=== PATIENT | female | born 1940 | race Caucasian/White ===

== ENCOUNTER → 2016-11-29 | Outpatient (REF) | payer MEDICARE, MEDICAID ==
[2016-11-29 14:49] LABS: CALCIUM LEVEL 9.2 MG/DL (8.8-10.2); PHOSPHORUS LEVEL 3.6 MG/DL (2.5-4.9)
== END ==
LOC: M LABDRAW1 13:36
PROVIDERS: ATTEND Internal Medicine Endocrinology, Diabetes & Metabolism
DX: E58 Dietary calcium deficiency (principal)

== ENCOUNTER → 2018-12-08 | Outpatient (CLI) | payer MEDICARE, MEDICAID ==
[~2018-12-08] MED LIST: PROHANCE 279.3MG/ML 15ML VIAL (A9576) As Ordered ONE
--- NOTE | 2018-12-08 15:19 | REP ---
MRI LUMBAR SPINE WITHOUT AND WITH IV GADOLINIUM: HISTORY: Intervertebral disc disease. Comparison MRI study is from April 18, 2016. The gadolinium enhancement dose is 13 mL of intravenous ProHance. TECHNIQUE: Sagittal and axial T1 and T2-weighted scans are acquired in the usual fashion with and without fat saturation. Sequences include spin echo, turbo spin-echo, and STIR imaging sequences. MRI FINDINGS: Lumbar vertebral body heights are preserved. Alignment is unchanged. There is a 3.6 mm degenerative L3-4 spondylolisthesis again seen. This appears to be unchanged. Cortical and medullary bone signal intensity are normal. No extra vertebral abnormality is observed. Conus medullaris is normal in position and appearance at L1. There is a hemangioma in the T12 vertebral body, unchanged. No significant finding is seen on axial and sagittal images at L1-L2. At L2-3, there is minimal diffuse disc bulging. The disc is somewhat narrowed. Mild ligamentum flavum hypertrophy is noted. These findings are unchanged. L2-L3, there is minimal diffuse disc bulging. No central canal stenosis or neural foraminal narrowing is appreciated. At L3-4, there is diffuse disc bulging. This indents the ventral margin of the thecal sac. Canal size is borderline. There is ligamentum flavum and facet hypertrophy present bilaterally. The findings are felt to be unchanged from the April 2016 prior study. At L4-5, there is moderate to advanced osteoarthritic facet hypertrophy bilaterally. A small quantity of facet joint fluid is present. The facet hypertrophy and ligamentum flavum hypertrophy are somewhat more pronounced at L4-5 when compared with the April 18, 2016 study. No neural foraminal narrowing is seen. At L5-S1, there is mild facet hypertrophy bilaterally, unchanged. Post gadolinium enhanced images show no suspicious or significant gadolinium enhancement at any level. IMPRESSION: Degenerative spondylosis changes. There is a stable 3 mm L3-4 degenerative spondylolisthesis. Diffuse disc bulging is seen at L3-4. There are moderate to advanced osteoarthritic facet changes bilaterally at L4-5 which are more pronounced than on the 2015 prior study. Electronically Signed by Renan Christian MD 12/08/2018 05:11 P
--- NOTE | 2018-12-08 17:18 | REP ---
MRI LEFT HIP WITH AND WITHOUT CONTRAST: TECHNIQUE: Coronal T1, STIR through the pelvis, T2 fat sat, left hip all three planes, axial oblique proton density fat sat left hip. Axial T1 fat sat, post IV Gadolinium axial and coronal T1 fat sat, following intravenous administration of 13 mL ProHance. COMPARISON: 04/18/2016 MRI right hip at I. The visualized osseous structures demonstrate normal bone marrow signal. There is no bone marrow edema or occult fracture. No bone lesion is seen. There is no evidence of avascular necrosis. At both hip joints there is moderate diffuse chondromalacia. No subchondral signal changes are seen. There are small bilateral joint effusions. There is increased signal and ill defined enhancement in the soft-tissues along the greater trochanter of the proximal left femur compatible with a moderate degree of greater trochanteric tendino bursitis. There is diffuse fraying of the superior and anterior left hip labrum. No paralabral cyst is seen. No other abnormalities are seen. There is no enhancing mass. In the visualized portions of the pelvis there is a cystic structure of the right ovary which is unchanged since the 2016 exam measuring 2.6 cm in diameter. Incidental note is made of sigmoid diverticulosis. IMPRESSION: No occult fracture or bone lesion. There is diffuse fraying of the superior and anterior left hip labrum. There is moderate greater trochanteric tendino bursitis on the left. Both hip joints demonstrate moderate diffuse chondromalacia and small joint effusions. A cystic structure of the right ovary is stable since the 2016 exam. There is sigmoid diverticulosis. Electronically Signed by Walt Jj MD 12/10/2018 02:36 P
== END ==
LOC: M RAD 11:59
PROVIDERS: ATTEND Physical Medicine & Rehabilitation
DX: M51.37 Other intervertebral disc degeneration, lumbosacral region (principal); M51.26 Other intervertebral disc displacement, lumbar region; M47.896 Other spondylosis, lumbar region; M70.62 Trochanteric bursitis, left hip; M25.451 Effusion, right hip; M25.452 Effusion, left hip; M94.251 Chondromalacia, right hip; M94.252 Chondromalacia, left hip
CPT/HCPCS: 72158; 73723; A9576

== ENCOUNTER 2018-12-27 16:36 | Inpatient (IN) | payer MEDICARE, MEDICAID ==
[~2018-12-27] VITALS: Ht 144.8 cm; Wt 72.6 kg
[2018-12-27 18:30] VITALS: BP 120/72
[2018-12-27] MEDS ORDERED: ENOXAPARIN 40 MG/0.4 ML SYRINGE (J1650) SC SCH (19:30)
--- NOTE | 2018-12-27 19:48 | HPEPDOC ---
[facility] Medical History & Physical Date of Admission December 27, 2018 Date of Service: December 27, 2018 History and Physical DATE OF ADMISSION 12/27/2018 PCP Valdemar CHIEF COMPLAINT: Left ankle pain HISTORY OF PRESENT ILLNESS: Patient is a 78-year-old female who presents with left ankle pain, she reports being in the usual state of her normal health until earlier this day when she was at the cemetery cleaning her 's grave stone she has chronic back pain which makes it difficult for her to kneel down. Attempting to switch to have stone she spread her legs tending to do the splits in order to get lower from there she lost balance and fell onto her left ankle. The patient tells me that since then she has had exquisite pain. She denies any concerning prodromal symptoms. She denies lightheadedness dizziness palpitations chest pressure shortness of breath nausea vomiting or diarrhea. She tells me that she is more calm blood this time since being seen in [place] and that she lives alone and is unable to return home secondary to her inability to care for herself in her current state. Otherwise patient denies weight loss, hair loss, headache, visual changes, cough, abdominal pain, muscle aches, worsening arthritis, change in mood at the present time she tells me her pain is well- controlled PAST MEDICAL HISTORY: 1. Hypertension. 2. Hypothyroidism. 3. dyslipidemia 4. Osteoporosis. 5. Hiatal hernia HOME MEDICATIONS: Please see below. ALLERGIES: Please see below PAST SURGICAL HISTORY: 1. Right shoulder arthroscopically. 2. Tonsillectomy. 3. Hysterectomy 4. Colon resection with ostomy and then reversal 5. Right temporal artery biopsy 6. I will tunnel release 7. Cataract extraction. SOCIAL HISTORY: Lives with: Alone, Employment: Not working, Tobacco use: Never user. ETOH: None last drink 3 years ago, Illicit drug use: Denies, Tattoos done unprofessionally: Denies. IV drug use: Denies CODE STATUS: Full code FAMILY HISTORY:Reviewed and noncontributory REVIEW OF SYSTEMS: 10 systems reviewed and negative other than HPI PHYSICAL EXAMINATION: VITAL SIGNS: Temperature 97, pulse 91, respiratory rate 16, blood pressure 140/77, pulse oximetry 94 % on room air. GENERAL: Pleasant elderly female sitting up in bed awake alert oriented speaking in complete sentences no acute distress HEENT: Moist mucous membranes no elevation and CVP CARDIOVASCULAR: S1 S2 regular no additional heart sounds appreciated. RESPIRATORY: Clear to auscultation bilaterally. ABDOMINAL: Bowel sounds present abdomen soft and nontender, obese EXTREMITIES: No clubbing cyanosis or edema she has decreased range of motion in the left lower extremity secondary to splinting with Matheus wrap. The dressing is not removed at this time her pain is well-controlled. The patient declines offers of her foot more thoroughly examined with removal of the dressing NEUROLOGICAL: Spontaneously moves all 4 extremities cranial 2 through 12 grossly intact no gross focal deficits appreciated PSYCHOLOGICAL: Appropriate LABORATORY DATA: See below. MICROBIOLOGY: Please see below. IMAGING: Reports from [facility] reviewed: Spiral fracture of the distal metaphyseal versus of the fibula with tibiotalar joint disruption ASSESSMENT & PLAN: This is a 78-year-old female with Left distal fibular fracture and tibiotalar joint disruption. PROBLEMS: 1. Left distal fibular fracture and tibial talar joint disruption: I place a consult orthopedic surgery Dr. San is aware the patient. I have ordered her for repeat imaging of her left ankle to be reviewed by him. I've ordered for DVT prophylaxis she did not Zoloft to pain control secondary to an oxycodone allergy she denies any narcotics offered. She tells me that her pain is well-controlled with simple Tylenol and as such for the time being I'll continue her with this on an as-needed basis. I'll keep her on bed rest until weightbearing status to be determined by orthopedic surgery. Following that she would certainly benefit from PT OT and no surgical procedure is warranted she would likely need subacute rehabilitation. At this time she is not medically risk stratified prior operative procedure she has fairly good exercise tolerance however she tells me she'll be fairly short of breath on climbing 2 flights of stairs. She follows with Dr. Aldrich incarcerated tells me she has had a stress test done in the past she does not remember what was done for the results. I will recheck to their office in order to obtain the records first thing tomorrow morning. The patient has no prodromal symptoms concerning for any syncopal-like behavior. PFS consult placed. I'll make her nothing by mouth after midnight in case she is an operative candidate tomorrow if it is necessary 2. Hypertension: She tells me she is normally well controlled for the time being I'll provide her with her metoprolol will hold her valsartan hydrochlorothiazide pending orthopedic surgery eval and possible surgical intervention. Should she become hypertensive would restart her valsartan 160 mg after her hydro chlorothiazide 12 mg 3. Dyslipidemia: Continue with simvastatin 4. Seasonal allergies: Continue with cetirizine 5. Hypothyroidism: Continue with Synthroid 6. Osteoporosis: Continue with probably a injections every [address] Seymour's office, resume calcium and vitamin D were unable 7. Constipation: Chronic continue with senna 8. Shortness of breath: The patient uses an inhaler but very infrequently is unclear if this is associated with any underlying cardiac disease she certainly does not have a significant history for which I'm aware of at this time we'll review her records prior to risk stratification. We'll hold her home baby aspirin DVT PROPHYLAXIS: Lovenox DISPOSITION: Admitted to medical surgical floor with orthopedic surgery consult Allergies Coded Allergies: pregabalin (Verified Allergy, Intermediate, HEADACHE, 12/27/18) shellfish derived (Verified Allergy, Unknown, n/v, 12/27/18) SMOKE (Verified Adverse Reaction, Unknown, H/A, 01/13/08) A-FIB/CHADSVASC A-FIB History Current/History of A-Fib/PAF?: No NUNU DOHERTY MD December 27, 2018 19:48
[2018-12-27] MEDS ORDERED: PROAAER10 INH (20:05)
[2018-12-27] MEDS ORDERED: CALC500T44 PO (20:05)
[2018-12-27] MEDS ORDERED: SYNT75TA PO (20:05)
[2018-12-27] MEDS ORDERED: MAPA325T2 PO (20:05)
[2018-12-27] MEDS ORDERED: SIMV40TA2 PO (20:06)
[2018-12-27] MEDS ORDERED: VALS160T PO (20:06)
[2018-12-27] MEDS ORDERED: METO1TAB7 PO (20:06)
[2018-12-27] MEDS ORDERED: AMOX500C PO (20:06)
[2018-12-27] MEDS ORDERED: SENN1TAB8 PO (20:06)
[2018-12-27] MEDS ORDERED: GABA-1171 PO (20:06)
[2018-12-27] MEDS ORDERED: ALL10TAB28 PO (20:06)
[2018-12-27] MEDS ORDERED: VITA100014 PO (20:06)
--- NOTE | 2018-12-27 20:35 | REP ---
Clinical: Left fibular fracture. Technique: AP, lateral, bilateral oblique views of the left ankle. Findings: Evaluation is significantly limited due to overlying cast material. A subtle oblique nondisplaced fracture of the distal fibular metaphysis is suggested with diffuse swelling. Further acute injury cannot be excluded. Impression: Nondisplaced fracture of the distal fibular metaphysis. Electronically Signed by Ronni Howell MD 12/27/2018 08:26 P
--- NOTE | 2018-12-27 20:36 | REP ---
Clinical: Distal fibular fracture. Technique: AP and lateral views of the left tibia / fibula. Findings: Subtle nondisplaced fracture of the distal fibular metaphysis is suggested. Evaluation is significantly limited due to overlying cast material. Further subtle injuries cannot be excluded. Impression: Subtle nondisplaced fracture of the distal fibular metaphysis. Electronically Signed by Ronni Howell MD 12/27/2018 08:28 P
--- NOTE | 2018-12-27 20:37 | REP ---
Clinical: Preoperative assessment . Comparison: None . Findings: The mediastinum and cardiac silhouette are stable and within normal limits for portable technique. The lung nelson demonstrate chronic-appearing changes without acute consolidation, effusion, or pneumothorax. Skeletal structures are intact. Impression: Chronic-appearing changes. No obvious acute cardiopulmonary process appreciated. Electronically Signed by Ronni Howell MD 12/27/2018 08:29 P
[2018-12-27] MEDS ORDERED: D 101000 PO (20:57)
[2018-12-27] MEDS ORDERED: HEPARIN SOD (PORCINE) 5000 UNITS/ML VIAL SQ SCH (21:00)
[2018-12-27] MEDS: SIMVASTATIN 40 MG TAB PO SCH (21:13)
[2018-12-27] MEDS: METOPROLOL SUCC (TopROL XL) 50MG **XL** TAB PO SCH (21:13)
[2018-12-27] MEDS: CETIRIZINE (ZyrTEC) 10 MG TAB PO SCH (21:13)
[2018-12-27 21:21] LABS: HEMATOCRIT 38.5 % (36.0-47.0); HEMOGLOBIN 12.7 g/dl (12.0-15.5); MEAN CORPUSCULAR HEMOGLOBIN 30.7 pg (27.0-33.0); PLATELET COUNT, AUTOMATED 228 10^3/uL (150-450); RED BLOOD COUNT 4.14 10^6/uL (4.00-5.40); WHITE BLOOD COUNT 9.1 10^3/uL (4.0-10.0)
[2018-12-27] MEDS ORDERED: HEPARIN SOD (PORCINE) 5000 UNITS/ML VIAL SQ ONE (21:45)
[2018-12-27 21:52] LABS: ALBUMIN 3.4 GM/DL (3.2-5.2); ALT/SGPT 20 U/L (12-78); BILIRUBIN,TOTAL 0.5 MG/DL (0.2-1.0); BLOOD UREA NITROGEN 23 MG/DL (7-18); CALCIUM LEVEL 9.2 MG/DL (8.8-10.2); CARBON DIOXIDE LEVEL 25 MEQ/L (21-32); CHLORIDE LEVEL 107 MEQ/L (98-107); CREATININE FOR GFR 0.88 MG/DL (0.55-1.30); GLOMERULAR FILTRATION RATE > 60.0 (>39); GLUCOSE, FASTING 99 MG/DL (70-100); POTASSIUM SERUM 4.1 MEQ/L (3.5-5.1); SODIUM LEVEL 139 MEQ/L (136-145); TOTAL PROTEIN 6.9 GM/DL (6.4-8.2)
[2018-12-27 22:00] VITALS: BP 137/76
[2018-12-28] MEDS: ACETAMINOPHEN TAB 650MG DOSE (2X325MG) PO PRN ×3 (00:03→22:28)
[2018-12-28] MEDS: LEVOTHYROXINE 75MCG TABLET (0.075MG) PO SCH (05:47)
[2018-12-28 06:00] VITALS: BP 139/71
[2018-12-28 06:58] LABS: HEMATOCRIT 36.7 % (36.0-47.0); MEAN CORPUSCULAR HEMOGLOBIN 29.9 pg (27.0-33.0); MEAN CORPUSCULAR HGB CONC 32.7 g/dl (32.0-36.5); MEAN CORPUSCULAR VOLUME 91.5 fl (80.0-96.0); PLATELET COUNT, AUTOMATED 208 10^3/uL (150-450); RED BLOOD COUNT 4.01 10^6/uL (4.00-5.40); WHITE BLOOD COUNT 6.5 10^3/uL (4.0-10.0)
[2018-12-28 07:23] LABS: BLOOD UREA NITROGEN 22 MG/DL (7-18); CALCIUM LEVEL 9.1 MG/DL (8.8-10.2); CARBON DIOXIDE LEVEL 25 MEQ/L (21-32); CHLORIDE LEVEL 107 MEQ/L (98-107); CREATININE FOR GFR 0.76 MG/DL (0.55-1.30); GLOMERULAR FILTRATION RATE > 60.0 (>39); GLUCOSE, FASTING 108 MG/DL (70-100); POTASSIUM SERUM 3.9 MEQ/L (3.5-5.1); SODIUM LEVEL 138 MEQ/L (136-145)
--- NOTE | 2018-12-28 10:04 | CR ---
DATE OF CONSULTATION: 12/28/2018 CHIEF COMPLAINT: Left ankle pain. HISTORY OF PRESENT ILLNESS: Estelle Kirk is a 78-year-old who sustained a mechanical fall yesterday. She had immediate pain of the left ankle. She was seen in [facility] where she was diagnosed with a left ankle fracture. She was splinted and transferred to [facility]. She lives alone and is not able to go home. She has pain in the left ankle, but denies pain elsewhere. PAST MEDICAL HISTORY: 1. Hypertension. 2. Hypothyroidism. 3. Dyslipidemia. 4. Osteoporosis. 5. Hiatal hernia. PAST SURGICAL HISTORY: 1. Right shoulder arthroscopy. 2. Tonsillectomy. 3. Hysterectomy. 4. Colon resection with ostomy and then reversal. 5. Right temporal artery biopsy. 6. Carpal tunnel release. 7. Cataract extraction. ALLERGIES: - PREGABALIN - SHELLFISH - SMOKE HOME MEDICATIONS: - simvastatin - Synthroid - cetirizine - senna PHYSICAL EXAMINATION: Afebrile. Vital signs stable. General: Well appearing, alert and oriented times three. Cardiovascular: Regular rate and rhythm. Respiratory: Lungs clear to auscultation bilaterally. Abdomen: Soft. Nontender. Extremities: Skin is clean, dry and intact. Intact dorsiflexion and plantar flexion of the great toe. Sensation is intact over the toes, but the patient states she does have some paresthesias in the left lower extremity. This is currently being worked up by Dr. Motta with MRI and she may need EMG. IMAGING: X-rays from [facility] are reviewed. There is a distal fibula fracture with slight displacement of the ankle mortise. There is a possible nondisplaced medial malleolar fracture. No other obvious fractures. IMPRESSION: Left distal fibula fracture. PLAN: The patient wishes to avoid surgery if at all possible. I would like a CT scan to evaluate for possible medial malleolar fracture. Overall, the fracture itself is not very displaced. This is one that may be amenable to cast treatment. Again, we will make the decision once I see the CT scan. If we do have to do surgery, we will need medical clearance. I will touch base with her medical team as soon as I have more information from the CT scan. All her questions were answered and she is in agreement with this plan. ADDENDUM: CT scan was reviewed and consistent with a slightly displaced distal fibula fracture. After a long discussion with the patient and also her son, plans were made for nonoperative treatment in the cast. The fracture was further reduced and a mold was placed onto the cast. Post cast radiographs demonstrated satisfactory alignment. ERLINDA
--- NOTE | 2018-12-28 10:22 | IPNPDOC ---
Date Seen The patient was seen on 12/28/18. Progress Note SUBJECTIVE: Patient tells me that her pain is under control, it is a 3 at 10 she's been taking Tylenol she otherwise patient denies chest pain shortness breath nausea vomiting fevers chills OBJECTIVE PHYSICAL EXAMINATION: VITAL SIGNS: Please see below. GENERAL: Pleasant obese elderly woman sitting up in bed awake alert oriented speaking in complete sentences no acute distress HEENT: Moist mucous membranes no elevation and CVP CARDIOVASCULAR: S1 S2 regular no additional heart sounds appreciated. RESPIRATORY: Clear to auscultation bilaterally. ABDOMINAL: Bowel sounds present abdomen soft and nontender EXTREMITIES: No clubbing cyanosis or edema, left lower extremity splint and dressing is clean dry and intact she is spontaneously moving her left toes NEUROLOGICAL: Spontaneously moves all 4 extremities cranial 2 through 12 grossly intact no gross focal deficits appreciated PSYCHOLOGICAL: Appropriate LABORATORY DATA, IMAGING STUDIES, MICROBIOLOGY: Please see below. DVT prophylaxis ordered?: Heparin every 12 ASSESSMENT & PLAN: This is a 78-year-old female with Left distal fibular fracture and tibiotalar joint disruption. PROBLEMS: 1. Left distal fibular fracture and tibial talar joint disruption: Orthopedic surgery help greatly appreciated. There is plan for CT scan of the lower extremity today. Unfortunately the patient does describe significant shortness of breath when walking which she tells me she is unsure if she's had a recent stress test to follow-up with Dr. Aldrich day care aide Judy. She knows that she is an echocardiogram but cannot remember the results of either of these tests when they were last completed. I will check an echocardiogram and admit ef forts to contact [facility] see if we can obtain his clinic records this weekend. For the time being I think she is medically cleared to proceed with surgery and communicated this to the orthopedic surgery team. Her pain is well-controlled today remains on DVT prophylaxis, and if all possible she would like to avoid surgery. Weightbearing status as per orthopedic surgery 2. Hypertension: Controlled, continue with her metoprolol will hold her valsartan hydrochlorothiazide should she become hypertensive would restart her valsartan 160 mg after her hydrochlorothiazide 12 mg 3. Dyslipidemia: Continue with simvastatin 4. Seasonal allergies: Continue with cetirizine 5. Hypothyroidism: Continue with Synthroid 6. Osteoporosis: Continue with probably a injections every [address] Seymour's office, resume calcium and vitamin D when able 7. Constipation: Chronic continue with senna 8. Shortness of breath: The patient uses an inhaler but very infrequently is unclear if this is associated with any underlying cardiac disease she certainly does not have a significant history for which I'm aware of at this time we'll review her records prior to risk stratification. We'll hold her home baby aspirin in anticipation of possible surgery DISPOSITION: Pending orthopedic surgery eval and risk stratification, as well as PTOT VS, I&O, 24H, Fishbone Vital Signs/I&O Vital Signs Date Time Temp Pulse Resp B/P (MAP) Pulse Ox O2 Delivery O2 Flow Rate FiO2 12/28/18 06:00 97.5 72 18 139/71 (93) 97 I&O- Last 24 Hours up to 6 AM 12/28/18 06:00 Intake Total 300 ml Output Total 550 ml Balance -250 ml Laboratory Data 24H LABS Laboratory Tests 2 12/27/18 21:02: Nucleated Red Blood Cells % (auto) 0.0, Anion Gap 7L, Glomerular Filtration Rate > 60.0, Blood Urea Nitrogen 23H, Creatinine 0.88, Sodium Level 139, Potassium Level 4.1, Chloride Level 107, Carbon Dioxide Level 25, Calcium Level 9.2, Aspartate Amino Transf (AST/SGOT) 21, Alanine Aminotransferase (ALT/SGPT) 20, Alkaline Phosphatase 41L, Total Bilirubin 0.5, Total Protein 6.9, Albumin 3.4, Albumin/Globulin Ratio 0.97L 12/28/18 06:30: Nucleated Red Blood Cells % (auto) 0.0, Anion Gap 6L, Glomerular Filtration Rate > 60.0, Blood Urea Nitrogen 22H, Creatinine 0.76, Sodium Level 138, Potassium Level 3.9, Chloride Level 107, Carbon Dioxide Level 25, Calcium Level 9.1 CBC/BMP Laboratory Tests 12/27/18 21:02 Red Blood Count 4.14, Mean Corpuscular Volume 93.0, Mean Corpuscular Hemoglobin 30.7, Mean Corpuscular Hemoglobin Concent 33.0, Red Cell Distribution Width 14.3, Calcium Level 9.2, Aspartate Amino Transf (AST/SGOT) 21, Alanine Aminotransferase (ALT/SGPT) 20, Alkaline Phosphatase 41 L, Total Bilirubin 0.5, Total Protein 6.9, Albumin 3.4 12/28/18 06:30 Red Blood Count 4.01, Mean Corpuscular Volume 91.5, Mean Corpuscular Hemoglobin 29.9, Mean Corpuscular Hemoglobin Concent 32.7, Red Cell Distribution Width 14.6 H, Calcium Level 9.1 NUNU DOHERTY MD December 28, 2018 10:22
--- NOTE | 2018-12-28 10:40 | REP ---
Clinical: Trauma. Fibular fracture. Technique: Axial noncontrast images through the ankle with coronal and sagittal re-formations. Findings: There is a comminuted essentially nondisplaced fracture of the distal fibular metaphysis/ lateral malleolus as well as a very small sliver fracture fragments from the anteroinferior margin of the distal tibia at the tibial navicular joint space best identified on sagittal views. Surrounding post traumatic soft tissue swelling. Impression: Comminuted fracture of the distal fibula. Very small sliver fracture fragments from the anteroinferior margin of the tibia. Surrounding post traumatic soft tissue swelling and infiltration. Electronically Signed by Ronni Howell MD 12/28/2018 10:31 A
--- NOTE | 2018-12-28 12:55 | ECGEPIP ---
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
[2018-12-28 14:00] VITALS: BP 112/61
[2018-12-28] MEDS: METOPROLOL SUCC (TopROL XL) 50MG **XL** TAB PO SCH (20:25)
[2018-12-28] MEDS: SIMVASTATIN 40 MG TAB PO SCH (20:25)
[2018-12-28] MEDS: CETIRIZINE (ZyrTEC) 10 MG TAB PO SCH (20:26)
[2018-12-28 22:00] VITALS: BP 132/68
[2018-12-29] MEDS: LEVOTHYROXINE 75MCG TABLET (0.075MG) PO SCH (05:41)
[2018-12-29 06:00] VITALS: BP 134/75
--- NOTE | 2018-12-29 06:38 | ECHO ---
DATE OF PROCEDURE: 12/28/2018 REFERRING PHYSICIAN: Dr. Banuelos PATIENT LOCATION: Room 5130 REASON FOR ECHOCARDIOGRAM: Shortness of breath. 2D MEASUREMENT: IVS: 0.9 cm LV: 3.7 cm LVPW: 1.0 cm LA: 3.1 cm Aorta: 3.3 cm IVC: 1.8 cm DOPPLER MEASUREMENTS: Mitral E: 0.59, Mitral A: 0.86, with a ratio of 0.7 Maximum tricuspid valve velocity: 2.2 m/s 2D COMMENTS: 1. Normal left ventricular size, wall thickness, and normal global left ventricular systolic function. The estimated left ventricular systolic ejection fraction is 60-65%. 2. Subjectively, the left atrium appeared to be mildly enlarged. Normal right atrium and right ventricle. 3. The atrial septum appeared to be normal without evidence of defect or shunt. 4. Normal aortic root. 5. No pericardial effusion seen. 6. Minimally calcified aortic valve with normal leaflet excursion. Mildly calcified mitral annulus with normal anterior mitral valve leaflet motion. Normal tricuspid valve. The pulmonic valve and proximal pulmonary artery branches were not well visualized. 7. The inferior vena cava was normal in size, central venous pressure is most likely normal. DOPPLER: Only trace tricuspid regurgitation detected. The calculated pulmonary artery systolic pressure was normal. Abnormal relaxation pattern was noted across the mitral valve leaflets as well as mitral valve annulus consistent with features of left ventricular diastolic dysfunction. IMPRESSION 1. Normal global left ventricular systolic function. There are some features of left ventricular diastolic dysfunction manifested by abnormal relaxation, grade 1. 2. Aortic valve sclerosis without stenosis or aortic regurgitation. 3. Mitral annulus calcification. No significant mitral regurgitation or mitral stenosis detected. 4. The left atrium appeared to be mildly enlarged subjectively. 5. Trace tricuspid regurgitation with a normal calculated pulmonary artery systolic pressure.
[2018-12-29 07:28] LABS: HEMATOCRIT 37.2 % (36.0-47.0); HEMOGLOBIN 12.4 g/dl (12.0-15.5); MEAN CORPUSCULAR HEMOGLOBIN 31.2 pg (27.0-33.0); MEAN CORPUSCULAR HGB CONC 33.3 g/dl (32.0-36.5); MEAN CORPUSCULAR VOLUME 93.7 fl (80.0-96.0); PLATELET COUNT, AUTOMATED 208 10^3/uL (150-450); RED BLOOD COUNT 3.97 10^6/uL (4.00-5.40); WHITE BLOOD COUNT 5.4 10^3/uL (4.0-10.0)
[2018-12-29 07:54] LABS: BLOOD UREA NITROGEN 18 MG/DL (7-18); CALCIUM LEVEL 8.9 MG/DL (8.8-10.2); CARBON DIOXIDE LEVEL 27 MEQ/L (21-32); CHLORIDE LEVEL 107 MEQ/L (98-107); CREATININE FOR GFR 0.88 MG/DL (0.55-1.30); GLOMERULAR FILTRATION RATE > 60.0 (>39); GLUCOSE, FASTING 106 MG/DL (70-100); POTASSIUM SERUM 3.9 MEQ/L (3.5-5.1); SODIUM LEVEL 140 MEQ/L (136-145)
[2018-12-29] MEDS: ACETAMINOPHEN TAB 650MG DOSE (2X325MG) PO PRN ×2 (09:15→13:53)
--- NOTE | 2018-12-29 11:35 | REP ---
Clinical: Cast. Fracture. Technique: AP, lateral, bilateral oblique views of the left ankle. Findings: Nondisplaced oblique fracture of the distal fibula is appreciated with overlying soft tissue swelling. Overlying cast material limits evaluation of fine bony detail. Impression: Nondisplaced acute fracture of the distal fibula. Electronically Signed by Ronni Howell MD 12/29/2018 11:28 A
--- NOTE | 2018-12-29 11:36 | REP ---
Clinical: Trauma. Fall. Technique: Neutral and frog lateral views of the left hip. Findings: Generalized age-related degenerative changes are appreciated. No acute fracture or dislocation identified. Impression: No acute fracture dislocation. Electronically Signed by Ronni Howell MD 12/29/2018 11:28 A
--- NOTE | 2018-12-29 13:11 | IPNPDOC ---
Date Seen The patient was seen on 12/29/18. Progress Note SUBJECTIVE: Patient tells me that her pain is under control she denies any new complaints other than she suspects she is developing a callus related to her splint otherwise patient denies chest pain shortness breath nausea vomiting fevers chills OBJECTIVE PHYSICAL EXAMINATION: VITAL SIGNS: Please see below. GENERAL: Pleasant obese elderly woman sitting up in bed awake alert oriented speaking in complete sentences appears comfortable HEENT: Moist mucous membranes no elevation and CVP. CARDIOVASCULAR: S1 S2 regular no additional heart sounds appreciated. RESPIRATORY: Clear to auscultation bilaterally. ABDOMINAL: Bowel sounds present abdomen soft and nontender, obese EXTREMITIES: No clubbing cyanosis or edema, left lower extremity splint and dressing is clean dry and intact NEUROLOGICAL: Spontaneously moves all 4 extremities cranial 2 through 12 grossly intact no gross focal deficits appreciated PSYCHOLOGICAL: Appropriate LABORATORY DATA, IMAGING STUDIES, MICROBIOLOGY: Please see below. DVT prophylaxis ordered?: Heparin every 12 ECHOCARDIOGRAM:1. Normal global left ventricular systolic function. There are some features of left ventricular diastolic dysfunction manifested by abnormal relaxation, grade 1. 2. Aortic valve sclerosis without stenosis or aortic regurgitation. 3. Mitral annulus calcification. No significant mitral regurgitation or mitral stenosis detected. 4. The left atrium appeared to be mildly enlarged subjectively. 5. Trace tricuspid regurgitation with a normal calculated pulmonary artery systolic pressure. ASSESSMENT & PLAN: This is a 78-year-old female with Left distal fibular fracture and tibiotalar joint disruption. PROBLEMS: 1. Left distal fibular fracture and tibial talar joint disruption: Orthopedic surgery help greatly appreciated. The patient has poor baseline exercise tolerance but fairly benign echocardiogram we are still unable to obtain recent stress test from her primary care provider's office. [facility] and moderate risk for chester-operative for cardiac complication to undergo a low risk procedure. No further testing required prior to procedure. Her pain is well-controlled today remains on DVT prophylaxis, and if at all possible she would like to avoid surgery. Weightbearing status as per orthopedic surgery. At this time is unclear to me if she is scheduled for operative surgery today or tomorrow. 2. Hypertension: Controlled, continue with her metoprolol will hold her valsartan hydrochlorothiazide should she become hypertensive would restart her valsartan 160 mg after her hydrochlorothiazide 12 mg 3. Dyslipidemia: Continue with simvastatin 4. Seasonal allergies: Continue with cetirizine 5. Hypothyroidism: Continue with Synthroid 6. Osteoporosis: Continue with prolia injections every [address] Seymour's office, resume calcium and vitamin D when able 7. Constipation: Chronic continue with senna 8. Shortness of breath: Patient is at her baseline restrictive status with no active issue DISPOSITION: Pending orthopedic surgery eval VS, I&O, 24H, Fishbone Vital Signs/I&O Vital Signs Date Time Temp Pulse Resp B/P (MAP) Pulse Ox O2 Delivery O2 Flow Rate FiO2 12/29/18 06:00 98.0 75 18 134/75 (94) 93 I&O- Last 24 Hours up to 6 AM 12/29/18 06:00 Intake Total 660 ml Output Total 1100 ml Balance -440 ml Laboratory Data 24H LABS Laboratory Tests 2 12/29/18 06:44: Nucleated Red Blood Cells % (auto) 0.0, Anion Gap 6L, Glomerular Filtration Rate > 60.0, Blood Urea Nitrogen 18, Creatinine 0.88, Sodium Level 140, Potassium Level 3.9, Chloride Level 107, Carbon Dioxide Level 27, Calcium Level 8.9 CBC/BMP Laboratory Tests 12/29/18 06:44 Red Blood Count 3.97 L, Mean Corpuscular Volume 93.7, Mean Corpuscular Hemoglobin 31.2, Mean Corpuscular Hemoglobin Concent 33.3, Red Cell Distribution Width 14.6 H, Calcium Level 8.9 NUNU DOHERTY MD December 29, 2018 13:11
[2018-12-29 14:00] VITALS: BP 140/63
[2018-12-29] MEDS: SIMVASTATIN 40 MG TAB PO SCH (20:10)
[2018-12-29] MEDS: CETIRIZINE (ZyrTEC) 10 MG TAB PO SCH (20:10)
[2018-12-29] MEDS: METOPROLOL SUCC (TopROL XL) 50MG **XL** TAB PO SCH (20:11)
[2018-12-29 22:00] VITALS: BP 141/59
[2018-12-30] MEDS: ACETAMINOPHEN TAB 650MG DOSE (2X325MG) PO PRN ×3 (00:26→21:42)
[2018-12-30] MEDS: LEVOTHYROXINE 75MCG TABLET (0.075MG) PO SCH (05:24)
[2018-12-30 06:00] VITALS: BP 140/64
[2018-12-30 06:09] LABS: HEMATOCRIT 37.4 % (36.0-47.0); HEMOGLOBIN 12.2 g/dl (12.0-15.5); MEAN CORPUSCULAR HEMOGLOBIN 30.4 pg (27.0-33.0); MEAN CORPUSCULAR HGB CONC 32.6 g/dl (32.0-36.5); MEAN CORPUSCULAR VOLUME 93.3 fl (80.0-96.0); PLATELET COUNT, AUTOMATED 228 10^3/uL (150-450); RED BLOOD COUNT 4.01 10^6/uL (4.00-5.40); WHITE BLOOD COUNT 5.7 10^3/uL (4.0-10.0)
[2018-12-30 06:23] LABS: BLOOD UREA NITROGEN 16 MG/DL (7-18); CALCIUM LEVEL 8.5 MG/DL (8.8-10.2); CARBON DIOXIDE LEVEL 24 MEQ/L (21-32); CHLORIDE LEVEL 110 MEQ/L (98-107); CREATININE FOR GFR 0.82 MG/DL (0.55-1.30); GLOMERULAR FILTRATION RATE > 60.0 (>39); GLUCOSE, FASTING 121 MG/DL (70-100); POTASSIUM SERUM 4.1 MEQ/L (3.5-5.1); SODIUM LEVEL 139 MEQ/L (136-145)
--- NOTE | 2018-12-30 13:20 | IPNPDOC ---
Text Note Date of Service The patient was seen on 12/30/18. NOTE SUBJECTIVE: Ms. Kirk is seen in bedside rounds this morning. Her pain is c ontrolled, her left LE now has a cast. She denies any new complaints. Denies CP, SOB, n/v or fever or chills. OBJECTIVE PHYSICAL EXAMINATION: VITAL SIGNS: Please see below. GENERAL: Pleasant obese 78 y/o female appearing her stated age sitting up in bed awake alert oriented speaking in complete sentences appears comfortable HEENT: Moist mucous membranes no elevation and CVP. CARDIOVASCULAR: S1 S2 regular no additional heart sounds appreciated. RESPIRATORY: Clear to auscultation bilaterally. ABDOMINAL: Bowel sounds present abdomen soft and nontender, obese EXTREMITIES: No clubbing cyanosis or edema, left lower extremity casted NEUROLOGICAL: Spontaneously moves all 4 extremities cranial 2 through 12 grossly intact no gross focal deficits appreciated PSYCHOLOGICAL: Appropriate ASSESSMENT & PLAN: This is a 78-year-old female with Left distal fibular fracture and tibiotalar joint disruption. PROBLEMS: 1. Left distal fibular fracture and tibial talar joint disruption - Orthopedic surgery help greatly appreciated. They have casted her left LE. The patient has poor baseline exercise tolerance but fairly benign echocardiogram we are still unable to obtain recent stress test from her primary care provider's office. At this time she is medically optimized and moderate risk for chester-op erative for cardiac complication to undergo a low risk procedure. No further testing required prior to procedure. However, seems she will not be going to surgery at least not soon. She remains on DVT prophylaxis, and if at all possible she would like to avoid surgery. Weightbearing status as per orthopedic surgery. 2. Hypertension -stable, c/w metoprolol 3. Dyslipidemia: -c/w simvastatin 4. Seasonal allergies -c/w cetirizine 5. Hypothyroidism -c/wSynthroid 6. Osteoporosis: Continue with prolia injections every [address] Seymour's office, resume calcium and vitamin D when able 7. Constipation: c/w senna 8. Shortness of breath: Patient is at baseline restrictive status with no active issue DISPOSITION: Pending rehab placement, pt would like to be in [facility] VS,Fishbone, I+O VS, Fishbone, I+O Laboratory Tests 12/30/18 05:53 Red Blood Count 4.01, Mean Corpuscular Volume 93.3, Mean Corpuscular Hemoglobin 30.4, Mean Corpuscular Hemoglobin Concent 32.6, Red Cell Distribution Width 14.5, Calcium Level 8.5 L Vital Signs Date Time Temp Pulse Resp B/P (MAP) Pulse Ox O2 Delivery O2 Flow Rate FiO2 12/30/18 06:00 97.0 71 19 140/64 (89) 95 I&O- Last 24 Hours up to 6 AM 12/30/18 05:59 Intake Total 1080 ml Output Total 1550 ml Balance -470 ml GME ATTESTATION GME ATTESTATION My faculty preceptor for this patient encounter was physically present during the encounter and was fully available. All aspects of the patient interview, examination, medical decision making process, and medical care plan development were reviewed and approved by the faculty preceptor. The faculty preceptor is aware and concurs with the plan as stated in the body of this note and will attest to such by his/her cosignature. ATTENDING NOTE I saw and evaluated the patient. I agree with the findings and plan of care as documented in the resident's note FOREST CARMICHAEL DO December 30, 2018 13:20 NUNU DOHERTY MD January 02, 2019 15:03
[2018-12-30 14:27] VITALS: BP 130/63
[2018-12-30] MEDS: RIVAROXABAN 10 MG TAB (XARELTO) PO SCH (17:09)
[2018-12-30] MEDS: CETIRIZINE (ZyrTEC) 10 MG TAB PO SCH (21:41)
[2018-12-30] MEDS: SIMVASTATIN 40 MG TAB PO SCH (21:41)
[2018-12-30] MEDS: METOPROLOL SUCC (TopROL XL) 50MG **XL** TAB PO SCH (21:42)
[2018-12-30 22:00] VITALS: BP 137/70
[2018-12-31] MEDS: LEVOTHYROXINE 75MCG TABLET (0.075MG) PO SCH (05:06)
[2018-12-31] MEDS: ACETAMINOPHEN TAB 650MG DOSE (2X325MG) PO PRN ×3 (05:06→19:53)
[2018-12-31 06:00] VITALS: BP 132/73
[2018-12-31] MEDS ORDERED: XARE10TA PO (06:16)
[2018-12-31] MEDS ORDERED: ACET-897 PO (06:16)
[2018-12-31 07:03] LABS: HEMATOCRIT 35.6 % (36.0-47.0); HEMOGLOBIN 11.5 g/dl (12.0-15.5); MEAN CORPUSCULAR HEMOGLOBIN 30.7 pg (27.0-33.0); MEAN CORPUSCULAR HGB CONC 32.3 g/dl (32.0-36.5); MEAN CORPUSCULAR VOLUME 94.9 fl (80.0-96.0); PLATELET COUNT, AUTOMATED 211 10^3/uL (150-450); RED BLOOD COUNT 3.75 10^6/uL (4.00-5.40); WHITE BLOOD COUNT 5.8 10^3/uL (4.0-10.0)
[2018-12-31 07:14] LABS: BLOOD UREA NITROGEN 15 MG/DL (7-18); CALCIUM LEVEL 7.8 MG/DL (8.8-10.2); CARBON DIOXIDE LEVEL 25 MEQ/L (21-32); CHLORIDE LEVEL 110 MEQ/L (98-107); GLOMERULAR FILTRATION RATE > 60.0 (>39); GLUCOSE, FASTING 115 MG/DL (70-100); POTASSIUM SERUM 4.1 MEQ/L (3.5-5.1); SODIUM LEVEL 141 MEQ/L (136-145)
--- NOTE | 2018-12-31 14:33 | IPNPDOC ---
Text Note Date of Service The patient was seen on 12/31/18. NOTE SUBJECTIVE: Ms. Kirk is seen in bedside rounds this morning. Her pain is c ontrolled but she does state the lateral side of her left foot is a little achy, however she does not want any change to her pain medications and says its tolerable. She is anxious to go to [place] for rehab. She denies any new complaints. Denies CP, SOB, n/v or fever or chills. OBJECTIVE PHYSICAL EXAMINATION: VITAL SIGNS: Please see below. GENERAL: Pleasant obese 78 y/o female appearing her stated age sitting up in bedside chair watching television, awake alert oriented speaking in complete sentences appears comfortable HEENT: Moist mucous membranes no elevation and CVP. CARDIOVASCULAR: S1 S2 regular no additional heart sounds appreciated. RESPIRATORY: Clear to auscultation bilaterally. ABDOMINAL: Bowel sounds present abdomen soft and nontender, obese EXTREMITIES: No clubbing cyanosis or edema, left lower extremity casted NEUROLOGICAL: Spontaneously moves all 4 extremities cranial 2 through 12 grossly intact no gross focal deficits appreciated PSYCHOLOGICAL: Appropriate ASSESSMENT & PLAN: This is a 78-year-old female with Left distal fibular fracture and tibiotalar joint disruption. PROBLEMS: 1. Left distal fibular fracture and tibial talar joint disruption - Orthopedic surgery help greatly appreciated. They have casted her left LE. She complains of some lateral foot pain under the cast but states it is tolerable. She is deconditioned and has poor baseline exercise tolerance but fairly benign echocardiogram. It does not appear she will be having surgery soon. However, she is medically optimized and moderate risk for chester-operative for cardiac complication to undergo a low risk procedure. No further testing required prior to procedure. She remains on DVT prophylaxis. Weightbearing status continues to be as per orthopedic surgery. 2. Hypertension -stable, c/w metoprolol 3. Dyslipidemia: -c/w simvastatin 4. Seasonal allergies -c/w cetirizine 5. Hypothyroidism -c/w Synthroid 6. Osteoporosis: Continue with prolia injections every [address] Seymour's office, resume calcium and vitamin D when able 7. Constipation: c/w senna 8. Shortness of breath: Patient is at baseline restrictive status with no active issue DISPOSITION: Pending rehab placement in [place]. VS,Fishbone, I+O VS, Fishbone, I+O Laboratory Tests 12/31/18 06:13 Red Blood Count 3.75 L, Mean Corpuscular Volume 94.9, Mean Corpuscular Hemoglobin 30.7, Mean Corpuscular Hemoglobin Concent 32.3, Red Cell Distribution Width 14.6 H, Calcium Level 7.8 L Vital Signs Date Time Temp Pulse Resp B/P (MAP) Pulse Ox O2 Delivery O2 Flow Rate FiO2 12/31/18 06:00 97.2 74 18 132/73 (92) 96 I&O- Last 24 Hours up to 6 AM 12/31/18 06:00 Intake Total 2370 ml Output Total 2450 ml Balance -80 ml GME ATTESTATION GME ATTESTATION My faculty preceptor for this patient encounter was physically present during the encounter and was fully available. All aspects of the patient interview, examination, medical decision making process, and medical care plan development were reviewed and approved by the faculty preceptor. The faculty preceptor is aware and concurs with the plan as stated in the body of this note and will attest to such by his/her cosignature. ATTENDING NOTE I saw and evaluated the patient. I agree with the findings and plan of care as documented in the resident's note FOREST CARMICHAEL DO December 31, 2018 14:33 NUNU DOHERTY MD Jan 03, 2019 12:24
[2018-12-31] MEDS: RIVAROXABAN 10 MG TAB (XARELTO) PO SCH (17:08)
[2018-12-31 19:52] VITALS: BP 130/0
[2018-12-31] MEDS: SIMVASTATIN 40 MG TAB PO SCH (19:52)
[2018-12-31] MEDS: METOPROLOL SUCC (TopROL XL) 50MG **XL** TAB PO SCH (19:52)
[2018-12-31] MEDS: CETIRIZINE (ZyrTEC) 10 MG TAB PO SCH (19:53)
[2018-12-31 22:00] VITALS: BP 140/74
[2019-01-01] MEDS: LEVOTHYROXINE 75MCG TABLET (0.075MG) PO SCH (05:19)
[2019-01-01] MEDS: ACETAMINOPHEN TAB 650MG DOSE (2X325MG) PO PRN ×2 (05:19→13:33)
[2019-01-01 06:00] VITALS: BP 126/64
[2019-01-01 06:03] LABS: HEMATOCRIT 38.1 % (36.0-47.0); HEMOGLOBIN 12.4 g/dl (12.0-15.5); MEAN CORPUSCULAR HEMOGLOBIN 30.7 pg (27.0-33.0); MEAN CORPUSCULAR HGB CONC 32.5 g/dl (32.0-36.5); MEAN CORPUSCULAR VOLUME 94.3 fl (80.0-96.0); PLATELET COUNT, AUTOMATED 238 10^3/uL (150-450); RED BLOOD COUNT 4.04 10^6/uL (4.00-5.40); WHITE BLOOD COUNT 7.3 10^3/uL (4.0-10.0)
[2019-01-01 06:33] LABS: BLOOD UREA NITROGEN 14 MG/DL (7-18); CALCIUM LEVEL 8.9 MG/DL (8.8-10.2); CARBON DIOXIDE LEVEL 26 MEQ/L (21-32); CHLORIDE LEVEL 112 MEQ/L (98-107); CREATININE FOR GFR 0.78 MG/DL (0.55-1.30); GLOMERULAR FILTRATION RATE > 60.0 (>39); GLUCOSE, FASTING 116 MG/DL (70-100); POTASSIUM SERUM 4.4 MEQ/L (3.5-5.1); SODIUM LEVEL 142 MEQ/L (136-145)
--- NOTE | 2019-01-01 14:51 | DS.PDOC ---
Discharge Summary General Date of Admission December 27, 2018 at 18:30 Date of Discharge 01/01/2019 Discharge Summary DISCHARGE DIAGNOSIS:Left distal fibular fracture and tibial talar joint disruption SECONDARY DIAGNOSIS: 1.Hypertension 2. Dyslipidemia 3. seasonal allergies 4. Hypothyroidism 5. Hypothyroidism 6. Osteoporosis 7. Constipation PROCEDURES PERFORMED DURING STAY: None. CONSULTANTS: Orthopedic surgery HOSPITAL COURSE: Patient is a 78-year-old female who had a mechanical fall at home and suffered a left distal fibular fracture and tibiotalar joint disruption. She was transferred from [facility] for orthopedic surgery evaluation at that time she came in a splint. She did have an echocardiogram efforts were made to risk stratify prior to any operative procedure. Orthopedic surgery and is deciding against operative procedure after lengthy discussed with the patient will also requested to avoid surgery at all costs. The decision was made to go with a cast. Follow-up in the orthopedic surgery clinic. Patient continued with physical therapy and remain in hospital awaiting placement in [place] which she was able to be accomplished today. DISCHARGE MEDICATIONS: Please see below. ALLERGIES: Please see below. SUBJECTIVE: Patient tells me that she is feeling much better her pain is well- controlled otherwise patient denies chest pain, shortness, breath, nausea, vomiting, fevers, chills OBJECTIVE: PHYSICAL EXAMINATION: VITAL SIGNS: Please see below. GENERAL: Pleasant elderly female sitting in a chair awake alert oriented speaking in complete sentences no acute distress HEENT: Moist mucous membranes no elevation and CVP CARDIOVASCULAR: S1 S2 regular no additional heart sounds appreciated. RESPIRATORY: Clear to auscultation bilaterally. ABDOMINAL: Bowel sounds present abdomen soft and nontender EXTREMITIES: No clubbing, cyanosis, edema left looks family cast is clean dry and intact NEUROLOGICAL: Spontaneously moves all 4 extremities cranial 2 through 12 grossly intact, no gross focal deficits appreciated PSYCHOLOGICAL: Appropriate LABORATORY DATA, MICROBIOLOGY: Please see below. IMAGING STUDIES: Ankle left complete:Nondisplaced acute fracture of the distal fibula. CT ankle without contrast:Comminuted fracture of the distal fibula. Very small sliver fracture fragments from the anteroinferior margin of the tibia. Surrounding post traumatic soft tissue swelling and infiltration. ECHOCARDIOGRAM: ECHOCARDIOGRAM:1. Normal global left ventricular systolic function. There are some features of left ventricular diastolic dysfunction manifested by abnormal relaxation, grade 1. 2. Aortic valve sclerosis without stenosis or aortic regurgitation. 3. Mitral annulus calcification. No significant mitral regurgitation or mitral stenosis detected. 4. The left atrium appeared to be mildly enlarged subjectively. 5. Trace tricuspid regurgitation with a normal calculated pulmonary artery systolic pressure. DVT prophylaxis ordered: Xarelto ASSESSMENT AND PLAN: This is a 78-year-old GENDER with left distal fibular fracture and tibiotalar joint disruption. PROBLEMS: 1. Left distal fibula fracture and tibiotalar joint disruption: Orthopedic surgery consult greatly appreciated status post cast placement. Patient will follow-up with Dr. Lozoya 01/06/2019 she is touchdown weightbearing on the left she is on Xarelto for DVT prophylaxis and Tylenol for pain control which seems to suffice. She is with physical therapy and is stable for discharge to rehab ilitation in [place] which has been arranged for her today 2. Hypertension: Her home hydrochlorothiazide and valsartan were on hold hospitalized and she was normotensive will resume his upon discharge as her diet is likely to change. Patient continued on metoprolol 3. Dyslipidemia: Continue with simvastatin 4. Seasonal allergies: Continue with cetirizine 5. Hypothyroidism: Continue with Synthroid 6. Osteoporosis: Continue with prolia injections every [address] Seymour's office, resume calcium and vitamin D when able 7. Constipation: Chronic continue with senna DISPOSITION: Discharged to [place] for rehabilitation. DISCHARGE CONDITION: Improved and Stable. FOLLOW UP: Dr. Lozoya within 2 weeks patient given 7 days ACTIVITY: Touchdown weight-bearing on the left DIET: As prior to admission TIME SPENT ON DISCHARGE: 50 minutes Vital Signs/I&Os Vital Signs Date Time Temp Pulse Resp B/P (MAP) Pulse Ox O2 Delivery O2 Flow Rate FiO2 01/01/19 06:00 97.3 73 18 126/64 (84) 94 I&O- Last 24 Hours up to 6 AM 01/01/19 06:00 Intake Total 3150 ml Output Total 1250 ml Balance 1900 ml Laboratory Data Labs 24H Laboratory Tests 2 01/01/19 05:17: Nucleated Red Blood Cells % (auto) 0.0, Anion Gap 4L, Glomerular Filtration Rate > 60.0, Blood Urea Nitrogen 14, Creatinine 0.78, Sodium Level 142, Potassium Level 4.4, Chloride Level 112H, Carbon Dioxide Level 26, Calcium Level 8.9 CBC/BMP Laboratory Tests 01/01/19 05:17 Red Blood Count 4.04, Mean Corpuscular Volume 94.3, Mean Corpuscular Hemoglobin 30.7, Mean Corpuscular Hemoglobin Concent 32.5, Red Cell Distribution Width 14.7 H, Calcium Level 8.9 Discharge Medications Scheduled Acetaminophen (Tylenol Extra Strength) 500 Mg Tablet, 1,000 MG PO Q8HP Calcium Carbonate/Vitamin D3 (Calcium 500-Vit D3 200 Tablet) 1 Each Tablet, 3 TAB PO DAILY, (Reported) Cetirizine HCl (Cetirizine HCl) 10 Mg Tablet, 10 MG PO QHS, (Reported) Cholecalciferol (Vitamin D3) (Vitamin D3) 1,000 Unit Capsule, 3,000 UNIT PO QPM, (Reported) WITH DINNER Cyanocobalamin (Vitamin B-12) (Vitamin B-12) 1,000 Mcg Tablet, 1,000 MCG PO DAILY, (Reported) Levothyroxine Sodium (Synthroid) 75 Mcg Tablet, 75 MCG PO DAILY, (Reported) Metoprolol Succinate (Metoprolol Succinate) 50 Mg Tab.er.24h, 50 MG PO QHS, (Reported) Rivaroxaban (Xarelto) 10 Mg Tablet, 10 MG PO DAILY Sennosides (Senna) 8.6 Mg Tablet, 25.8 MG PO QHS, (Reported) Simvastatin (Simvastatin) 40 Mg Tablet, 40 MG PO QHS, (Reported) Valsartan/Hydrochlorothiazide (Valsartan-Hctz 160-12.5 mg Tab) 1 Each Tablet, 1 TAB PO DAILY, (Reported) Scheduled PRN Acetaminophen (Mapap) 325 Mg Tablet, 650 MG PO QID PRN for PAIN, (Reported) Albuterol Sulfate (Proair Hfa) 8.5 Gm Hfa.aer.ad, 2 PUFF INH Q4H PRN for SHORTNESS OF BREATH, (Reported) Allergies Coded Allergies: pregabalin (Verified Allergy, Intermediate, HEADACHE, 12/27/18) shellfish derived (Verified Allergy, Unknown, n/v, 12/27/18) SMOKE (Verified Adverse Reaction, Unknown, H/A, 01/13/08) NUNU DOHERTY MD January 01, 2019 14:51
== END 2019-01-01 15:01 | DRG 563 ==
LOC: M MS5PR 18:30
PROVIDERS: ADMIT Internal Medicine; ATTEND Internal Medicine
PROC: 0QSKXZZ Reposition Left Fibula, External Approach (ICD-10-PCS; principal; 2018-12-28)
DX: S82.432A Displaced oblique fracture of shaft of left fibula, initial encounter for closed fracture (principal); E03.9 Hypothyroidism, unspecified; E78.5 Hyperlipidemia, unspecified; M81.0 Age-related osteoporosis without current pathological fracture; K44.9 Diaphragmatic hernia without obstruction or gangrene; I10 Essential (primary) hypertension; W18.30XA Fall on same level, unspecified, initial encounter; J30.2 Other seasonal allergic rhinitis; Y92.89 Other specified places as the place of occurrence of the external cause; Y93.H9 Activity, other involving exterior property and land maintenance, building and construction; K59.00 Constipation, unspecified; R06.02 Shortness of breath; Z88.8 Allergy status to other drugs, medicaments and biological substances; Z98.49 Cataract extraction status, unspecified eye; Z90.710 Acquired absence of both cervix and uterus; Z90.49 Acquired absence of other specified parts of digestive tract; Z91.013 Allergy to seafood; Z91.048 Other nonmedicinal substance allergy status; Z79.899 Other long term (current) drug therapy

== ENCOUNTER → 2019-05-28 | Outpatient (CLI) | payer MEDICARE, MEDICAID ==
[~2019-05-28] MED LIST changes: +ACET-897 PO; +ALL10TAB29 PO; +AMOX500C PO; +CALC500T44 PO; +CYAN100050 PO; +D 101000 PO; +GABA-1171 PO; +MAPA325T2 PO; +METO1TAB7 PO; +PROAAER10 INH; +SENN1TAB8 PO; +SIMV40TA2 PO; +SYNT75TA PO; +VALS160T PO; +XARE10TA PO
--- NOTE | 2019-05-28 17:25 | REP ---
MRI PELVIS WITH AND WITHOUT CONTRAST: HISTORY: Left leg pain. TECHNIQUE: Multiple sequences obtained in the axial, coronal and sagittal planes prior to and following the intravenous administration of 14 mL ProHance. Correlation made with prior MRI right hip 04/18/2016. Visualized osseous structures demonstrate normal bone marrow signal. There is no bone marrow edema or occult fracture. There is no evidence of avascular necrosis at either hip. Superficial soft tissue structures demonstrate no abnormal signal. Within the pelvis, no adenopathy is seen. A normal left ovary is visualized. The right ovary demonstrates a nodule measuring 2.9 x 3.7 x 2.5 cm. This is somewhat hyperintense on T2 and is hypointense on T1. This does appear to mildly enhance following the intravenous administration of gadolinium. No other pelvic mass is seen. No free fluid is seen. IMPRESSION: Right ovarian mass appears to mildly enhance. Compared to an MRI of the right hip 04/18/2016, the mass appears to have slightly increased in size by a few millimeters. No other evidence of pelvic mass or adenopathy. Recommend followup. Electronically Signed by Walt Jj MD 05/30/2019 11:01 A
== END ==
LOC: M RAD 12:23
PROVIDERS: ATTEND Physical Medicine & Rehabilitation
DX: M48.061 Spinal stenosis, lumbar region without neurogenic claudication (principal)
CPT/HCPCS: 72197; A9576

== ENCOUNTER → 2019-06-15 | Outpatient (CLI) | payer MEDICARE, MEDICAID ==
[~2019-06-15] MED LIST changes: -PROHANCE 279.3MG/ML 15ML VIAL (A9576) As Ordered ONE
--- NOTE | 2019-06-15 14:50 | REP ---
MRI left ankle without contrast: History: Left ankle and foot pain. Injury in a fall in December of 2018. Comparison radiographs December 27, 2018. Comparison CT study December 28, 2018. Technique: Axial, coronal and sagittal imaging planes were utilized. T1 and T2-weighted sequences are included with and without fat saturation. MRI findings: The obliquely oriented distal fibular fracture is visualized on T1 and T2-weighted scans although there is evidence of healing at least in the posterior superior aspect of the fracture lucency in the distal fibula. The anterior inferior edge of the fracture does not show complete union. There is a chip fracture along the anterior articular margin of the tibia with anterior tibiotalar osteoarthritic spurring as well. There is subcortical marrow edema in the anterolateral aspect of the tibia adjacent to the spur. There is a small amount of fluid in the extra-articular soft tissues at this level anteriorly. There is a 1 cm area of marrow edema in the central posterior talar dome and underlying talus. There is articular cartilage loss and joint space narrowing in the tibiotalar articulation consistent with osteoarthritis. No osteochondral defect lesion is appreciated. The deltoid ligamentous complex components appear intact. The anterior talofibular ligament has an intact appearance on T2-weighted scans in the axial plane. Posterior talofibular and posterior inferior tibiofibular ligaments appear intact. The anterior inferior tibiofibular ligament is not well seen. Similarly, the distal attachment the calcaneofibular ligament is not well seen. Plantar fascia is slightly thickened and shows increased signal intensity consistent with mild plantar fasciitis. Achilles tendon appears intact. Impression: Joint space narrowing in the tibiotalar articulation consistent with osteoarthritis. There are subcortical areas of marrow edema on both sides of the tibiotalar articulation. Healing distal fibular fracture and anterior articular margin chip fracture of the tibia. Evidence of plantar fasciitis. Electronically Signed by Renan Christian MD 06/15/2019 05:11 P
== END ==
LOC: M RAD 09:26
PROVIDERS: ATTEND Orthopaedic Surgery
DX: M25.872 Other specified joint disorders, left ankle and foot (principal); S82.62XD Displaced fracture of lateral malleolus of left fibula, subsequent encounter for closed fracture with routine healing

== ENCOUNTER 2023-11-13 00:30 | Observation (INO) | payer MEDICARE, MEDICAID ==
[~2023-11-13] VITALS: Ht 149.9 cm; Wt 59.1 kg
[~2023-11-13 00:30] MED LIST changes: -ALL10TAB29 PO; -CALC500T44 PO; +CETI-24 PO; +CYAN-1 PO; -CYAN100050 PO; -MAPA325T2 PO; +MAPA325T8 PO; +OYST500T92 PO; +SENN-186 PO; -SENN1TAB8 PO; -SIMV40TA2 PO; +SIMV40TA20 PO; -VALS160T PO; +VALS160T2 PO
[2023-11-13] MEDS: ACETAMINOPHEN TAB 650MG DOSE (2X325MG) PO ONE (03:37)
[2023-11-13 05:35] LABS: BASO % 0.5 % (0.0-1.0); EOS # 0.1 10^3/uL (0.0-0.5); EOS % 0.6 % (0.0-3.0); HEMATOCRIT 34.9 % (36.0-47.0); HEMOGLOBIN 11.5 g/dl (12.0-15.5); LYMPH # 2.2 10^3/uL (1.5-5.0); LYMPH % 26.2 % (24.0-44.0); MEAN CORPUSCULAR HEMOGLOBIN 30.6 pg (27.0-33.0); MEAN CORPUSCULAR VOLUME 92.8 fl (80.0-96.0); MONO # 0.8 10^3/uL (0.0-0.8); NEUTROPHILS # 5.3 10^3/uL (1.5-8.5); NEUTROPHILS % 62.2 % (36.0-66.0); PLATELET COUNT, AUTOMATED 225 10^3/uL (150-450); RED BLOOD COUNT 3.76 10^6/uL (4.00-5.40); WHITE BLOOD COUNT 8.4 10^3/uL (4.0-10.0)
[2023-11-13 05:58] LABS: ALBUMIN 3.8 G/DL (3.2-5.2); ALKALINE PHOSPHATASE 30 U/L (46-116); ALT/SGPT 17 U/L (7.0-40); AST/SGOT 16 U/L (<34); BILIRUBIN,TOTAL 0.6 MG/DL (0.3-1.2); BLOOD UREA NITROGEN 20 MG/DL (9-23); CALCIUM LEVEL 10.5 MG/DL (8.3-10.6); CARBON DIOXIDE LEVEL 24 MMOL/L (20-31); CHLORIDE LEVEL 107 MMOL/L (98-107); CREATININE FOR GFR 0.82 MG/DL (0.55-1.30); GLOMERULAR FILTRATION RATE > 60.0 (>32); GLUCOSE, FASTING 101 MG/DL (74-106); MAGNESIUM LEVEL 1.8 MG/DL (1.8-2.4); POTASSIUM SERUM 3.9 MMOL/L (3.5-5.1); SODIUM LEVEL 141 MMOL/L (136-145); TOTAL PROTEIN 6.3 G/DL (5.7-8.2)
[2023-11-13] MEDS: PIPERACILLIN/TAZOBACTAM SOD 4.5 GM in D5W MINI-BAG PLUS 50 ML IV ONE (06:17)
[2023-11-13] MEDS ORDERED: DIOV160T9 PO (06:48)
[2023-11-13] MEDS ORDERED: ACET-907 PO (06:48)
[2023-11-13] MEDS ORDERED: NITR4TASL SL (06:48)
[2023-11-13] MEDS ORDERED: MECL-86 PO (06:48)
[2023-11-13] MEDS ORDERED: D-101000 PO (06:48)
[2023-11-13] MEDS ORDERED: BUDE10.7 INH (06:48)
[2023-11-13] MEDS ORDERED: ALBU8.5H INH (06:48)
[2023-11-13] MEDS ORDERED: HOME MED LIST COMPLETE! XX SCH (06:50)
[2023-11-13] MEDS ORDERED: MOM 30ML SUSPENSION UDC PO PRN (09:05)
[2023-11-13] MEDS ORDERED: MAALOX 30 ML SUSP *UDC PO PRN (09:05)
[2023-11-13] MEDS ORDERED: ONDANSETRON 4MG 2ML VIAL IV PRN (09:10)
[2023-11-13] MEDS: NS 1,000 ML IV ONE (09:18)
[2023-11-13] MEDS: HEPARIN SOD (PORCINE) 5000UNITS/ML 1ML VIAL/SYRINGE SC SCH (09:18)
[2023-11-13 14:30] VITALS: BP 152/97; TEMP 97.5; O2SAT 100
[2023-11-13] MEDS: PIPERACILLIN/TAZOBACTAM SOD 3.375 GM in D5W MINI-BAG PLUS 50 ML IV SCH (16:09)
[2023-11-13 16:16] LABS: AMORPHOUS SEDIMENT SMALL (NEGATIVE); APPEARANCE, URINE TURBID (CLEAR); BACTERIA, URINE AUTO 1+ (NEGATIVE); BILIRUBIN, URINE AUTO NEGATIVE (NEGATIVE); BLOOD, URINE BLOOD 1+ (NEGATIVE); COLOR, URINE YELLOW (YELLOW); GLUCOSE, URINE (UA) AUTO NEGATIVE (NEGATIVE); KETONE, URINE AUTO TRACE mg/dL (NEGATIVE); LEUKOCYTE ESTERASE, URINE AUTO NEGATIVE (NEGATIVE); NITRITE, URINE AUTO NEGATIVE (NEGATIVE); PROTEIN, URINE AUTO 1+ mg/dL (NEGATIVE); RBC, URINE AUTO 2 /HPF (0-3); SPECIFIC GRAVITY URINE AUTO 1.023 (1.002-1.035); SQUAMOUS EPITHELIAL CELL UR AU 21 /HPF (0-6); UROBILINOGEN, URINE AUTO 0.2 mg/dL (0.0-2.0); WBC, URINE AUTO 6 /HPF (0-3)
[2023-11-13 22:00] VITALS: BP 148/82; TEMP 97.9; O2SAT 95
[2023-11-13] MEDS: NYSTATIN 100,000 UNITS/GM TOPICAL PWD 15GM TOP SCH (22:11)
[2023-11-14 06:00] VITALS: BP 147/85; TEMP 97.9; O2SAT 96
[2023-11-14 07:12] LABS: BLOOD UREA NITROGEN 15 MG/DL (9-23); CALCIUM LEVEL 8.6 MG/DL (8.3-10.6); CARBON DIOXIDE LEVEL 23 MMOL/L (20-31); CHLORIDE LEVEL 108 MMOL/L (98-107); CREATININE FOR GFR 0.85 MG/DL (0.55-1.30); GLOMERULAR FILTRATION RATE > 60.0 (>32); GLUCOSE, FASTING 93 MG/DL (74-106); MAGNESIUM LEVEL 1.6 MG/DL (1.8-2.4); POTASSIUM SERUM 3.8 MMOL/L (3.5-5.1); SODIUM LEVEL 141 MMOL/L (136-145)
[2023-11-14] MEDS: MAG SULF 1GM/100ML (MAG RUN) 1 GM in IV 1 EA IV SCH (07:54)
[2023-11-14 14:00] VITALS: BP 145/76; TEMP 97.5; O2SAT 97
[2023-11-14] MEDS: ACETAMINOPHEN TAB 650MG DOSE (2X325MG) PO PRN (20:16)
[2023-11-14 20:50] VITALS: BP 158/94; TEMP 97.9; O2SAT 97
[2023-11-15 06:00] VITALS: BP 142/98; TEMP 97.7; O2SAT 96
[2023-11-15] MEDS ORDERED: CEFD1CAP9 PO (06:23)
[2023-11-15] MEDS ORDERED: METR-265 PO (06:23)
[2023-11-15] MEDS ORDERED: PROBCAP14 PO (06:23)
== END 2023-11-15 09:22 ==
LOC: M ED 00:30 → M ED INP 09:02 → ENRESERV 11:57 → M MSPAV 14:30
PROVIDERS: ADMIT Student in an Organized Health Care Education/Training Program; ATTEND Student in an Organized Health Care Education/Training Program
DX: K57.32 Diverticulitis of large intestine without perforation or abscess without bleeding (principal); R29.6 Repeated falls; R33.9 Retention of urine, unspecified; I10 Essential (primary) hypertension; E03.9 Hypothyroidism, unspecified; E78.5 Hyperlipidemia, unspecified; M81.0 Age-related osteoporosis without current pathological fracture; K44.9 Diaphragmatic hernia without obstruction or gangrene; G30.9 Alzheimer's disease, unspecified; F02.80 Dementia in other diseases classified elsewhere, unspecified severity, without behavioral disturbance, psychotic disturbance, mood disturbance, and anxiety; E83.42 Hypomagnesemia; Z91.81 History of falling; Z90.49 Acquired absence of other specified parts of digestive tract; Z98.41 Cataract extraction status, right eye; Z98.42 Cataract extraction status, left eye; Z90.710 Acquired absence of both cervix and uterus; Z90.89 Acquired absence of other organs; R54 Age-related physical debility; J30.2 Other seasonal allergic rhinitis; K59.00 Constipation, unspecified; Z88.8 Allergy status to other drugs, medicaments and biological substances; Z91.013 Allergy to seafood; Z79.899 Other long term (current) drug therapy; Z79.51 Long term (current) use of inhaled steroids; Z79.2 Long term (current) use of antibiotics; Z79.890 Hormone replacement therapy; Z66 Do not resuscitate
CPT/HCPCS: 36415; 70450; 71250; 72125; 72131; 73080; 74176; 80048; 80053; 81001; 83735; 85025; 87040; 96365; 96366; 96367; 96372; 96376; 97161; 97165; 97530; 99285; G0378; J2543; J3475